=== PATIENT | female | born 1995 | race Caucasian/White ===

== ENCOUNTER 2017-12-03 21:46 | Emergency (ER) | payer MEDICAID, OTHER ==
[2017-12-03] MEDS: SMZ/TMP 800/160MG TABLET. PO (22:30)
[2017-12-03] MEDS: CLINDAMYCIN HCL 150 MG CAPSULE. PO (22:30)
== END 2017-12-03 23:20 | disposition home or self-care (01) ==
LOC: ER 21:46
DX: S61.051A Open bite of right thumb without damage to nail, initial encounter (principal); Z88.0 Allergy status to penicillin; Z88.1 Allergy status to other antibiotic agents; Z88.5 Allergy status to narcotic agent; Y04.1XXA Assault by human bite, initial encounter; Y93.89 Activity, other specified; Y99.8 Other external cause status; Y92.89 Other specified places as the place of occurrence of the external cause
CPT/HCPCS: 73130; 99284

== ENCOUNTER 2017-12-11 20:59 | Emergency (ER) | payer MEDICAID ==
[2017-12-11] MEDS ORDERED: DEXAMETHASONE SOD PHOS 20 MG/5 ML VIAL. IM (21:30)
[2017-12-11] MEDS ORDERED: FAMOTIDINE 20 MG TABLET. PO (21:30)
[2017-12-11] MEDS ORDERED: hydrOXYzine PAMOATE 25 MG CAPSULE PO (21:30)
[2017-12-11 21:35] LABS: INFLUENZA A PATIENT NEGATIVE (NEGATIVE); INFLUENZA B PATIENT NEGATIVE (NEGATIVE); OBC FLU VALID
[2017-12-11] MEDS: BENZONATATE 100 MG CAPSULE. PO (21:53)
== END 2017-12-11 22:19 | disposition home or self-care (01) ==
LOC: ER 20:59
DX: J06.9 Acute upper respiratory infection, unspecified (principal); Z88.0 Allergy status to penicillin; Z88.1 Allergy status to other antibiotic agents; Z88.5 Allergy status to narcotic agent
CPT/HCPCS: 87804; 87804-59; 99284

== ENCOUNTER 2018-06-06 11:30 | Emergency (ER) | payer MEDICAID ==
[2018-06-06 12:09] LABS: BILIRUBIN,URINE NEGATIVE (NEG); CLARITY,URINE CLEAR; COLOR,URINE YELLOW; GLUCOSE,URINE NEGATIVE (NEG); NITRITE,URINE NEGATIVE (NEG); PROTEIN,URINE NEGATIVE (NEG-TRACE); UROBILINOGEN,URINE 0.2 mg/dL (0.2 mg/dL)
[2018-06-06 12:21] LABS: BACTERIA,URINE FEW /HPF (0-FEW); RBC,URINE 20-40 /HPF (0-2); SQUAMOUS EPITHELIAL CELL,UR FEW /LPF
[2018-06-06 13:49] LABS: ADD MAN DIFF? NO
[2018-06-06 13:53] LABS: BASO % 1 % (0-3); EOS # 0.1 x10^3/uL (0.0-0.7); EOS % 1 % (0-3); HEMATOCRIT 36.2 % (36.0-47.0); HEMOGLOBIN 11.9 g/dL (12.0-15.5); LYMPH # 2.1 x10^3/uL (1.0-4.8); LYMPH % 26 % (24-48); MEAN CORPUSCULAR HEMOGLOBIN 27 pg (25-35); MEAN CORPUSCULAR HGB CONC 33 g/dL (31-37); MEAN CORPUSCULAR VOLUME 83 fL (79-100); MONO # 0.5 x10^3/uL (0.0-1.1); MONO % 6 % (0-9); NEUT # 5.3 x10^3uL (1.8-7.7); NEUT % 66 % (31-73); PLATELET COUNT 282 x10^3/uL (140-400); RED BLOOD COUNT 4.35 x10^6/uL (3.50-5.40); RED CELL DISTRIBUTION WIDTH 15.3 % (11.5-14.5)
[2018-06-06 14:04] LABS: ANION GAP 8 (6-14); BLOOD UREA NITROGEN 14 mg/dL (7-20); BUN/CREATININE RATIO 18 (6-20); CALCIUM 8.8 mg/dL (8.5-10.1); CARBON DIOXIDE 27 mmol/L (21-32); CHLORIDE 103 mmol/L (98-107); CREATININE 0.8 mg/dL (0.6-1.0); GFR 89.7; GLUCOSE 113 mg/dL (70-99); SODIUM 138 mmol/L (136-145)
[2018-06-06 14:10] LABS: ALBUMIN 3.7 g/dL (3.4-5.0); ALBUMIN/GLOBULIN RATIO 0.8 (1.0-1.7); ALK PHOS 100 U/L (46-116); ALT (SGPT) 28 U/L (14-59); AST (SGOT) 14 U/L (15-37); TOTAL BILIRUBIN 0.1 mg/dL (0.2-1.0); TOTAL PROTEIN 8.2 g/dL (6.4-8.2)
[2018-06-06] MEDS ORDERED: AZITHROMYCIN 250 MG TABLET. PO (15:30)
[2018-06-06] MEDS ORDERED: cefTRIAXone IM 250 MG VIAL IM (15:30)
[2018-06-07 07:14] LABS: URINE HCG POC HCG NEGATIVE (Negative)
[2018-06-10 07:33] LABS: CHLAMYDIA PROBE Negative (Negative); GC PROBE Negative (Negative)
== END 2018-06-06 15:35 | disposition home or self-care (01) ==
LOC: ER 11:30
DX: N93.9 Abnormal uterine and vaginal bleeding, unspecified (principal); Z88.0 Allergy status to penicillin; Z88.1 Allergy status to other antibiotic agents; Z88.5 Allergy status to narcotic agent
CPT/HCPCS: 36415; 76830; 76856; 80053; 81001; 81025; 85025; 87086; 99285-25; Q0111